=== PATIENT | female | born 1985 | race African-American/Black ===

== ENCOUNTER 2016-12-01 20:37 | Emergency (ER) | payer SELFPAY ==
[~2016-12-01] VITALS: Ht 160 cm; Wt 52.2 kg
[~2016-12-01 20:37] MED LIST: METR500T PO; PNV11TAB5 PO
[2016-12-01 21:00] VITALS: BP 125/75
[2016-12-01] MEDS ORDERED: CEFI200S PO (21:09)
[2016-12-01] MEDS ORDERED: AZIT500T PO (21:09)
[2016-12-01] MEDS ORDERED: METR500T PO (21:09)
--- NOTE | 2016-12-01 21:09 | PHYS DOC ---
Past Medical History Past Medical History: Ectopic , Other Additional Past Medical Histor: ectopic x2 Past Surgical History: Alcohol Use: None Drug Use: None Adult General Chief Complaint Chief Complaint: VAGINAL PROBLEM HPI HPI Patient is a 31 year old female presents to the emergency department with complaints of white foul-smelling vaginal discharge. Patient states that she has no pain. She states she is sexually active and is requesting to be treated for STDs. Review of Systems Review of Systems Constitutional: Denies fever or chills [] Eyes: Denies change in visual acuity, redness, or eye pain [] HENT: Denies nasal congestion or sore throat [] Respiratory: Denies cough or shortness of breath [] Cardiovascular: No additional information not addressed in HPI [] GI: Denies abdominal pain, nausea, vomiting, bloody stools or diarrhea [] : Genital discharge Musculoskeletal: Denies back pain or joint pain [] Integument: Denies rash or skin lesions [] Neurologic: Denies headache, focal weakness or sensory changes [] Endocrine: Denies polyuria or polydipsia [] Allergies Allergies Allergies Coded Allergies Type Severity Reaction Last Updated Verified No Known Drug Allergies 10/29/15 No Physical Exam Physical Exam Constitutional: Well developed, well nourished, no acute distress, non-toxic appearance. [] HENT: Normocephalic, atraumatic, bilateral external ears normal, oropharynx moist, no oral exudates, nose normal. [] Eyes: PERRLA, EOMI, conjunctiva normal, no discharge. [] Neck: Normal range of motion, no tenderness, supple, no stridor. [] Cardiovascular:Heart rate regular rhythm, no murmur [] Lungs & Thorax: Bilateral breath sounds clear to auscultation [] Abdomen: Bowel sounds normal, soft, no tenderness, no masses, no pulsatile masses. : pt refused[] Skin: Warm, dry, no erythema, no rash. [] Back: No tenderness, no CVA tenderness. [] Extremities: No tenderness, no cyanosis, no clubbing, ROM intact, no edema. [] Neurologic: Alert and oriented X 3, normal motor function, normal sensory function, no focal deficits noted. [] Psychologic: Affect normal, judgement normal, mood normal. [] Current Patient Data Lab Values Laboratory Tests Test 12/01/16 20:25 POC Urine HCG, Qualitative Hcg negative (Negative) EKG EKG [] Radiology/Procedures Radiology/Procedures [] Course & Med Decision Making Course & Med Decision Making Pertinent Labs and Imaging studies reviewed. (See chart for details) UCG negative []She declined pelvic exam. She is requesting treatment for STD. We will treat empirically did send a urine for GC and chlamydia. Dragon Disclaimer Dragon Disclaimer This electronic medical record was generated, in whole or in part, using a voice recognition dictation system. Departure Departure Impression: Primary Impression: Bacterial vaginosis Disposition: HOME, SELF-CARE Condition: STABLE Referrals: NO PCP (PCP) [facility] Patient Instructions: Bacterial Vaginosis Scripts Cefixime (SUPRAX) 200 Mg/5 Ml Susp.recon 400 MG PO ONCE, #10 ML Prov: GLORIA SALAZAR APRN 12/01/16 Azithromycin (ZITHROMAX) 500 Mg Tablet 2 TAB PO ONCE, #2 TAB Prov: GLORIA SALAZAR APRN 12/01/16 Metronidazole (FLAGYL) 500 Mg Tablet 1 TAB PO BID, #14 TAB Prov: GLORIA SALAZAR APRN 12/01/16 GLORIA SALAZAR APRN Dec 01, 2016 21:09
[2016-12-01 21:46] LABS: BILIRUBIN,URINE NEGATIVE (NEG); GLUCOSE,URINE NEGATIVE (NEG); NITRITE,URINE NEGATIVE (NEG); PH,URINE 5.5; PROTEIN,URINE NEGATIVE (NEG-TRACE); UROBILINOGEN,URINE 0.2 mg/dL (0.2 mg/dL)
[2016-12-01 21:52] LABS: BACTERIA,URINE FEW /HPF (0-FEW); RBC,URINE 0 /HPF (0-2); SQUAMOUS EPITHELIAL CELL,UR MOD /LPF; WBC,URINE RARE /HPF (0-4)
== END 2016-12-01 21:30 | disposition home or self-care (01) ==
LOC: ER 20:37
DX: N76.0 Acute vaginitis (principal)
CPT/HCPCS: 81001; 81025; 87491; 87591; 99284

== ENCOUNTER 2017-01-08 08:40 | Emergency (ER) | payer SELFPAY ==
[~2017-01-08] VITALS: Ht 160 cm; Wt 49.9 kg
[~2017-01-08 08:40] MED LIST changes: +AZIT500T PO; +CEFI200S PO
--- NOTE | 2017-01-08 09:12 | PHYS DOC ---
Past Medical History Past Medical History: No Pertinent History Additional Past Medical Histor: ectopic x2 Past Surgical History: Alcohol Use: None Drug Use: None Adult General Chief Complaint Chief Complaint: ABDOMINAL PAIN IN [facility] Patient is a 31 year old female 8 para 3, 2 miscarriages, 2 ectopic pregnancies who presents today concerned she might be . Patient states she did 2 tests yesterday. She states one was positive and one was negative. Patient denies any other symptoms. She states her menstrual cycle is late by 1 day. Review of Systems Review of Systems Constitutional: Denies fever or chills [] Eyes: Denies change in visual acuity, redness, or eye pain [] HENT: Denies nasal congestion or sore throat [] Respiratory: Denies cough or shortness of breath [] Cardiovascular: No additional information not addressed in HPI [] GI: concern for . Denies abdominal pain, nausea, vomiting, bloody stools or diarrhea [] : Denies dysuria or hematuria [] Musculoskeletal: Denies back pain or joint pain [] Integument: Denies rash or skin lesions [] Neurologic: Denies headache, focal weakness or sensory changes [] Allergies Allergies Allergies Coded Allergies Type Severity Reaction Last Updated Verified No Known Drug Allergies 10/29/15 No Physical Exam Physical Exam Constitutional: Well developed, well nourished, no acute distress, non-toxic appearance. [] HENT: Normocephalic, atraumatic, bilateral external ears normal, oropharynx moist, no oral exudates, nose normal. [] Eyes: PERRLA, EOMI, conjunctiva normal, no discharge. [] Neck: Normal range of motion, no tenderness, supple, no stridor. [] Cardiovascular:Heart rate regular rhythm, no murmur [] Lungs & Thorax: Bilateral breath sounds clear to auscultation [] Abdomen: Bowel sounds normal, soft, no tenderness, no masses, no pulsatile masses. [] Skin: Warm, dry, no erythema, no rash. [] Back: No tenderness, no CVA tenderness. [] Extremities: No tenderness, no cyanosis, no clubbing, ROM intact, no edema. [] Neurologic: Alert and oriented X 3, normal motor function, normal sensory function, no focal deficits noted. [] Psychologic: Affect normal, judgement normal, mood normal. [] Current Patient Data Vital Signs Vital Signs Date Time Temp Pulse Resp B/P (MAP) Pulse Ox O2 Delivery O2 Flow Rate FiO2 01/08/17 09:13 98.7 63 16 100 Room Air 98.7 Lab Values Laboratory Tests Test 01/08/17 09:06 01/08/17 09:25 POC Urine HCG, Qualitative Hcg negative (Negative) Maternal Serum HCG Beta Subunit < 1 mIU/mL (0-5) EKG EKG [] Radiology/Procedures Radiology/Procedures [] Course & Med Decision Making Course & Med Decision Making Pertinent Labs and Imaging studies reviewed. (See chart for details) This is a 31-year-old female patient presenting to the ED today with concern for . She is 8 para 3, 2 miscarriages, 2 ectopic pregnancies. Negative urine hCG. Due to her history of ectopic pregnancies we did a beta hCG which was less than 1. Patient was reassured she is not . Follow-up with an DEPENDENCY PROGRAM DIRECTOR. Dragshefali Disclaimer Dragon Disclaimer This electronic medical record was generated, in whole or in part, using a voice recognition dictation system. Departure Departure Impression: Primary Impression: test negative Disposition: HOME, SELF-CARE Condition: STABLE Referrals: NO PCP (PCP) SHIRA LINDSAY DO follow up with your OBGYN in one week Patient Instructions: Tests Additional Instructions: Your test both by urine and blood were negative. You are not at this point. Follow-up with an DEPENDENCY PROGRAM DIRECTOR for further concerns. LAURO SYLVESTER APRN Jan 08, 2017 09:12
[2017-01-08 09:13] VITALS: BP 115/69
== END 2017-01-08 10:20 | disposition home or self-care (01) ==
LOC: ER 08:40
DX: Z32.02 Encounter for pregnancy test, result negative (principal)
CPT/HCPCS: 36415; 81025; 84702; 99283

== ENCOUNTER 2017-07-30 18:26 | Emergency (ER) | payer SELFPAY, OTHER ==
[2017-07-30 19:16] LABS: URINE HCG POC HCG POSITIVE (Negative)
[2017-07-30 19:18] LABS: BILIRUBIN,URINE NEGATIVE (NEG); CLARITY,URINE CLEAR; COLOR,URINE YELLOW; GLUCOSE,URINE NEGATIVE (NEG); NITRITE,URINE NEGATIVE (NEG); PROTEIN,URINE NEGATIVE (NEG-TRACE)
[2017-07-30 19:23] LABS: BACTERIA,URINE 0 /HPF (0-FEW); RBC,URINE 0 /HPF (0-2); SQUAMOUS EPITHELIAL CELL,UR MOD /LPF; WBC,URINE OCC /HPF (0-4)
[2017-07-30 20:33] LABS: ADD MAN DIFF? NO
[2017-07-30 20:35] LABS: BASO # 0.1 x10^3/uL (0.0-0.2); BASO % 1 % (0-3); EOS # 0.1 x10^3/uL (0.0-0.7); EOS % 1 % (0-3); HEMATOCRIT 31.7 % (36.0-47.0); HEMOGLOBIN 10.3 g/dL (12.0-15.5); LYMPH # 2.4 x10^3/uL (1.0-4.8); LYMPH % 33 % (24-48); MEAN CORPUSCULAR HEMOGLOBIN 22 pg (25-35); MEAN CORPUSCULAR HGB CONC 32 g/dL (31-37); MEAN CORPUSCULAR VOLUME 67 fL (79-100); MONO # 0.9 x10^3/uL (0.0-1.1); MONO % 12 % (0-9); NEUT % 54 % (31-73); PLATELET COUNT 332 x10^3/uL (140-400); RED CELL DISTRIBUTION WIDTH 18.4 % (11.5-14.5); WHITE BLOOD COUNT 7.4 x10^3/uL (4.0-11.0)
[2017-07-30 20:51] LABS: ANION GAP 10 (6-14); BLOOD UREA NITROGEN 15 mg/dL (7-20); BUN/CREATININE RATIO 19 (6-20); CALCIUM 8.8 mg/dL (8.5-10.1); CARBON DIOXIDE 26 mmol/L (21-32); CHLORIDE 102 mmol/L (98-107); CREATININE 0.8 mg/dL (0.6-1.0); GLUCOSE 96 mg/dL (70-99); POTASSIUM 3.8 mmol/L (3.5-5.1); SODIUM 138 mmol/L (136-145)
[2017-07-30 20:53] LABS: ALBUMIN 3.7 g/dL (3.4-5.0); ALBUMIN/GLOBULIN RATIO 0.9 (1.0-1.7); ALK PHOS 96 U/L (46-116); ALT (SGPT) 14 U/L (14-59); AST (SGOT) 12 U/L (15-37); TOTAL BILIRUBIN 0.2 mg/dL (0.2-1.0)
[2017-07-30 21:55] LABS: ANISOCYTOSIS SLIGHT; HYPOCHROMIA MOD; MICROCYTOSIS MOD; PLT ESTIMATE ADEQUATE (ADEQUATE); POIKILOCYTOSIS SLIGHT; TARGET CELLS FEW
== END 2017-07-30 21:41 | disposition home or self-care (01) ==
LOC: ER 21:41
DX: O26.891 Other specified pregnancy related conditions, first trimester (principal); R10.9 Unspecified abdominal pain; Z87.440 Personal history of urinary (tract) infections; Z3A.01 Less than 8 weeks gestation of pregnancy
CPT/HCPCS: 36415; 76801; 76817; 80053; 81001; 81025; 84702; 85025; 99285-25

== ENCOUNTER 2018-10-09 18:47 | Emergency (ER) | payer OTHER ==
[~2018-10-09] VITALS: Ht 157.5 cm; Wt 54.4 kg
[~2018-10-09 18:47] MED LIST changes: +ONDA4TAB10 SL
[2018-10-09 19:15] VITALS: BP 109/59
[2018-10-09 19:53] LABS: BILIRUBIN,URINE NEGATIVE (NEG); CLARITY,URINE CLEAR; COLOR,URINE YELLOW; NITRITE,URINE POSITIVE (NEG); PH,URINE 6.5; PROTEIN,URINE NEGATIVE (NEG-TRACE)
--- NOTE | 2018-10-09 20:04 | PHYS DOC ---
Past Medical History Past Medical History: UTI Additional Past Medical Histor: ectopic x2 (LAURO SYLVESTER APRN) Past Surgical History: (LAURO SYLVESTER APRN) Alcohol Use: None Drug Use: None (LAURO SYLVESTER APRN) Adult General Chief Complaint Chief Complaint: HIP PAIN HPI HPI Patient is a 33 year old female who presents to the ED today complaining of 7 out of 10 right low back pain radiating to the right lower extremity for 3 days. Patient describes the pain as sharp and intermittent worse on weight-bearing on the right lower extremity. Denies any known injury. Denies any loss of bowel bladder function. Denies anything specifically relieving the pain. She is also concerned she could be , she states her cycle is late. Denies any abdominal pain. (LAURO SYLVESTER APRN) Review of Systems Review of Systems Constitutional: Denies fever or chills [] Eyes: Denies change in visual acuity, redness, or eye pain [] HENT: Denies nasal congestion or sore throat [] Respiratory: Denies cough or shortness of breath [] Cardiovascular: No additional information not addressed in HPI [] GI: Denies abdominal pain, nausea, vomiting, bloody stools or diarrhea [] : Denies dysuria or hematuria [] Musculoskeletal: Reports right low back pain Integument: Denies rash or skin lesions [] Neurologic: Denies headache, focal weakness or sensory changes [] All other systems were reviewed and found to be within normal limits, except as documented in this note. (LAURO SYLVESTER APRN) Allergies Allergies Allergies Coded Allergies Type Severity Reaction Last Updated Verified Penicillins Allergy Unknown 10/09/18 Yes acetaminophen Allergy Unknown 10/09/18 Yes codeine Allergy Unknown 10/09/18 Yes oxycodone Allergy Unknown 10/09/18 Yes (ROXANA NGO MD) Physical Exam Physical Exam Constitutional: Well developed, well nourished, no acute distress, non-toxic appearance. [] HENT: Normocephalic, atraumatic, bilateral external ears normal, oropharynx moist, no oral exudates, nose normal. [] Eyes: PERRLA, EOMI, conjunctiva normal, no discharge. [] Neck: Normal range of motion, no tenderness, supple, no stridor. [] Cardiovascular:Heart rate regular rhythm, no murmur [] Lungs & Thorax: Bilateral breath sounds clear to auscultation [] Abdomen: Bowel sounds normal, soft, no tenderness, no masses, no pulsatile masses. [] Skin: Warm, dry, no erythema, no rash. [] Back: No tenderness, no CVA tenderness. [] Extremities: No tenderness, no cyanosis, no clubbing, ROM intact, no edema. [] Neurologic: Alert and oriented X 3, normal motor function, normal sensory function, no focal deficits noted. [] Psychologic: Affect normal, judgement normal, mood normal. [] (LAURO SYLVESTER APRN) Current Patient Data Vital Signs Vital Signs Date Time Temp Pulse Resp B/P (MAP) Pulse Ox O2 Delivery O2 Flow Rate FiO2 10/09/18 19:15 98.8 73 16 109/59 (76) 99 Room Air 98.8 (ROXANA NGO MD) Lab Values Laboratory Tests Test 10/09/18 19:10 10/09/18 19:27 Urine Collection Type Unknown Urine Color Yellow Urine Clarity Clear Urine pH 6.5 Urine Specific [place] 1.015 Urine Protein Negative mg/dL (NEG-TRACE) Urine Glucose (UA) Negative mg/dL (NEG) Urine Ketones (Stick) Negative mg/dL (NEG) Urine Blood Negative (NEG) Urine Nitrite Positive (NEG) Urine Bilirubin Negative (NEG) Urine Urobilinogen Dipstick 1.0 mg/dL (0.2 mg/dL) Urine Leukocyte Esterase Moderate (NEG) Urine RBC 0 /HPF (0-2) Urine WBC >40 /HPF (0-4) Urine Squamous Epithelial Cells Mod /LPF Urine Bacteria Many /HPF (0-FEW) POC Urine HCG, Qualitative Hcg positive (Negative) (ROXANA NGO MD) EKG EKG [] (LAURO SYLVESTER APRN) Radiology/Procedures Radiology/Procedures [] (LAURO SYLVESTER APRN) Course & Med Decision Making Course & Med Decision Making Pertinent Labs and Imaging studies reviewed. (See chart for details) This is a 33-year-old female patient presenting to the ED today with complaints of right low back pain radiating to the right lower extremity for 3 days. Also concerned she could be . Positive urine hCG. Urine noted for UTI, discharged on MicroBid. Follow-up with CUSHION MAT MAKER in the course of next week. (LAURO SYLVESTER APRN) Course & Med Decision Making Staff Physician Addendum: I was working in the ER during the course of this patient's visit. I was available for consultation as needed, but I was not directly involved in the care of this patient. (ROXANA NGO MD) Dragon Disclaimer Dragon Disclaimer This electronic medical record was generated, in whole or in part, using a voice recognition dictation system. (LAURO SYLVESTER APRN) Departure Departure Impression: Primary Impression: Positive test Additional Impressions: Back pain Urinary tract infection Disposition: HOME, SELF-CARE Condition: STABLE Referrals: NO PCP (PCP) JAMES GOMES MD follow up on Friday with your OBGYN Patient Instructions: Back Pain in , - Urinary Tract Infection Additional Instructions: You were evaluated in the emergency room for back pain and noted to be congratulations. Your urine also was noted for infection. Take the prescribed antibiotics until completed. Take the pain medication prescribed as needed for pain. Try to apply ice or heat to the affected area on your back. Please follow- up with your CUSHION MAT MAKER next week. Scripts Cyclobenzaprine Hcl (CYCLOBENZAPRINE HCL) 10 Mg Tablet 1 TAB PO TID, #20 TAB Prov: LAURO SYLVESTER APRN 10/09/18 Nitrofurantoin Monohyd/M-Cryst (MACROBID 100 MG CAPSULE) 100 Mg Capsule 1 CAP PO BID, #14 CAP Prov: LAURO SYLVESTER APRN 10/09/18 Problem Qualifiers Additional Impressions: Back pain Back pain location: low back pain Chronicity: acute Back pain laterality: right Sciatica presence: with sciatica Sciatica laterality: sciatica of right side Qualified Codes: M54.41 - Lumbago with sciatica, right side Urinary tract infection Urinary tract infection type: site unspecified Hematuria presence: without hematuria Qualified Codes: N39.0 - Urinary tract infection, site not specified LAURO SYLVESTER APRN Oct 09, 2018 20:04 ROXANA NGO MD Oct 09, 2018 22:29
[2018-10-09 20:08] LABS: BACTERIA,URINE MANY /HPF (0-FEW); RBC,URINE 0 /HPF (0-2); SQUAMOUS EPITHELIAL CELL,UR MOD /LPF; WBC,URINE >40 /HPF (0-4)
[2018-10-09] MEDS ORDERED: NITR100C62 PO (20:16)
[2018-10-09] MEDS ORDERED: CYCL10TA2 PO (20:16)
== END 2018-10-09 20:29 | disposition home or self-care (01) ==
LOC: ER 18:47
DX: Z32.01 Encounter for pregnancy test, result positive (principal); N39.0 Urinary tract infection, site not specified; M54.41 Lumbago with sciatica, right side; Z88.0 Allergy status to penicillin; Z88.5 Allergy status to narcotic agent; Z88.6 Allergy status to analgesic agent
CPT/HCPCS: 81001; 81025; 99283

== ENCOUNTER 2018-10-15 09:04 | Emergency (ER) | payer SELFPAY ==
[~2018-10-15] VITALS: Ht 162.6 cm; Wt 54.4 kg
[~2018-10-15 09:04] MED LIST changes: +CYCL10TA2 PO; +NITR100C62 PO
--- NOTE | 2018-10-15 09:26 | PHYS DOC ---
Past Medical History Past Medical History: UTI Additional Past Medical Histor: ectopic x2 Past Surgical History: Alcohol Use: None Drug Use: None Adult General Chief Complaint Chief Complaint: ABNORMAL LABS HPI HPI Patient is a 33 year old have her serum quantitative HCG level checked. Patient says she isn't , her last menstrual period was on September 09 2018, she had been nighttime, had 4 live children. And went to [facility] on Friday night due to pelvic pain, had a workup done an ultrasound done did not show an IUP, her hCG level was 228 she was discharged home, recommended to follow with her SYSTEM CONSULTANT doctor in 48 hours to have her HCG level rechecked. She denies any abdominal pain, no pelvic pain, no vaginal bleeding or discharge today. Patient denies any chest pain, no trouble breathing. Review of Systems Review of Systems Constitutional: Denies fever or chills [] Eyes: Denies change in visual acuity, redness, or eye pain [] HENT: Denies nasal congestion or sore throat [] Respiratory: Denies cough or shortness of breath [] Cardiovascular: No additional information not addressed in HPI [] GI: Denies abdominal pain, nausea, vomiting, bloody stools or diarrhea [] : Denies dysuria or hematuria [] Musculoskeletal: Denies back pain or joint pain [] Integument: Denies rash or skin lesions [] Neurologic: Denies headache, focal weakness or sensory changes [] Endocrine: Denies polyuria or polydipsia [] All other systems were reviewed and found to be within normal limits, except as documented in this note. Allergies Allergies Allergies Coded Allergies Type Severity Reaction Last Updated Verified Penicillins Allergy Unknown 10/09/18 Yes acetaminophen Allergy Unknown 10/09/18 Yes codeine Allergy Unknown 10/09/18 Yes oxycodone Allergy Unknown 10/09/18 Yes Physical Exam Physical Exam Constitutional: Well developed, well nourished, no acute distress, non-toxic appearance. [] HENT: Normocephalic, atraumatic, bilateral external ears normal, oropharynx moist, no oral exudates, nose normal. [] Eyes: PERRLA, EOMI, conjunctiva normal, no discharge. [] Neck: Normal range of motion, no tenderness, supple, no stridor. [] Cardiovascular:Heart rate regular rhythm, no murmur [] Lungs & Thorax: Bilateral breath sounds clear to auscultation [] Abdomen: Bowel sounds normal, soft, no tenderness, no masses, no pulsatile masses. [] Skin: Warm, dry, no erythema, no rash. [] Back: No tenderness, no CVA tenderness. [] Extremities: No tenderness, no cyanosis, no clubbing, ROM intact, no edema. [] Neurologic: Alert and oriented X 3, normal motor function, normal sensory function, no focal deficits noted. [] Psychologic: Affect normal, judgement normal, mood normal. [] Current Patient Data Vital Signs Vital Signs Date Time Temp Pulse Resp B/P (MAP) Pulse Ox O2 Delivery O2 Flow Rate FiO2 10/15/18 11:00 79 12 146/91 (109) 100 Room Air 10/15/18 09:18 98.5 98.5 Lab Values Laboratory Tests Test 10/15/18 10:00 Maternal Serum HCG Beta Subunit 1337 mIU/mL (0-5) H EKG EKG [] Radiology/Procedures Radiology/Procedures [] Course & Med Decision Making Course & Med Decision Making Pertinent Labs and Imaging studies reviewed. (See chart for details) []She may she level IS RISEN UP ANTICIPATED WITH NORMAL IUP. Dragon Disclaimer Dragon Disclaimer This electronic medical record was generated, in whole or in part, using a voice recognition dictation system. Departure Departure Impression: Primary Impression: Disposition: 01 HOME, SELF-CARE Condition: STABLE Referrals: NO PCP (PCP) FOLLOW UP WITH YOUR SYSTEM CONSULTANT DOCTOR IN A WEEK FOR REEVALUATION. Patient Instructions: ABCs of EVE FERGUSON DO Oct 15, 2018 09:26
[2018-10-15 11:00] VITALS: BP 146/91
== END 2018-10-15 11:09 | disposition home or self-care (01) ==
LOC: ER 09:04
DX: Z34.81 Encounter for supervision of other normal pregnancy, first trimester (principal); Z98.890 Other specified postprocedural states; Z88.0 Allergy status to penicillin; Z88.6 Allergy status to analgesic agent; Z88.5 Allergy status to narcotic agent; Z3A.01 Less than 8 weeks gestation of pregnancy
CPT/HCPCS: 36415; 84702; 99283